=== PATIENT | male | born 1990 | race Caucasian/White ===

== ENCOUNTER 2019-04-22 19:08 | Emergency (ER) | payer SELFPAY ==
[~2019-04-22] VITALS: Ht 172.7 cm; Wt 82.5 kg
[~2019-04-22 19:08] MED LIST: DENIES; IBUP-1542 PO
[2019-04-22 19:19] VITALS: Ht 172.7 cm; Wt 82.5 kg
[2019-04-22] MEDS ORDERED: KETOROLAC 30 MG INJ IM STA (22:18)
[2019-04-22 23:26] VITALS: BP 127/88; PULSE 64; RESP 16
== END 2019-04-22 23:27 | disposition home or self-care (01) ==
LOC: FTE 19:08
DX: S39.012A Strain of muscle, fascia and tendon of lower back, initial encounter (principal); V49.50XA Passenger injured in collision with unspecified motor vehicles in traffic accident, initial encounter
CPT/HCPCS: 72100; 96372; 99284; J1885